=== PATIENT | female | born 1940 | race Caucasian/White ===

== ENCOUNTER 2016-11-18 08:27 | Outpatient (CLI) | payer MEDICARE ==
[~2016-11-18] VITALS: Ht 167.6 cm; Wt 118.2 kg
[~2016-11-18 08:27] MED LIST: ACETAMINOPHEN325 MG NG; AFRIN15 ML NS; ASPIRIN 81 MG E81 MG PO; BENADRYL50 MG PO; BIAXIN 500 MG500 MG PO; BUMEX 1 MG TAB1 MG PO; CALMOSEPTINE OI71 GM TOPICAL; CEFTIN500 MG PO; CELEBREX200 MG PO; COUMADIN7.5 MG PO; COZAAR100 MG PO; CYCLOPHOSPHAMID50 MG PO; DOXYCYCLINE HY100 M2 PO; ELAVIL25 MG PO; FLORANEX / LACT1 TAB PO; FLORASTOR250 MG PO; FLUTICASONE PRO16 GM NS; LASIX40 MG PO; LEVAQUIN500 MG PO; LEXAPRO10 MG; LOVENOX30 MG/0.3 SQ; LUNESTA2 M1 PO; MAALOX ADVANCE355 ML PO; MELATONIN 3 MG1 TAB PO; MERREM 1 GM/NS 11 G1 IV; MIRALAX17 GM PO; MUCINEX DM ER1 EAC1 PO; NIFEREX-150 CAP1 CA3 PO; NORCO 10/325 TA1 TA1 OR; NORVASC5 MG PO; PERFOROMIS20 MCG/21 NEB; PREDNISONE PO; PREDNISONE10 MG PO; PREDNISONE20 MG PO; PRILOSEC20 MG PO; PROTONIX40 MG PO; PROVENTIL/2.5 MG/3 M NEB; PULMICORT0.5 MG/21 INH; SINGULAIR10 MG PO; TESSALON PERLE100 MG PO; TUSSIONEX PENN473 ML PO; ULTRAM50 MG PO; VANCOMYCIN 1 GM/1 G1 IV; ZESTRIL10 MG PO; ZOFRAN4 MG PO
[2016-11-18 09:42] LABS: BASOPHILS 0.4 % (0-2); EOSINOPHILS 2.4 % (0-7); HEMATOCRIT 40.4 % (36.0-48.0); HEMOGLOBIN 13.2 g/dL (12-16); IMMATURE GRANULOCYTES 0.4 % (0-5); LYMPHOCYTES 17.3 % (15-50); MCH 31.8 pg (26.0-34.0); MCHC 32.7 g/dL (31.0-37.0); MCV 97.3 fL (80.0-100.0); MEAN PLATELET VOLUME 9.7 fL (7.4-10.4); NEUTROPHILS 71.5 % (40-80); RBC 4.15 10x6/uL (4.00-5.40); RDW 14.2 % (11.5-14.5); WBC 7.6 10x3/uL (4.8-10.8)
[2016-11-18 09:43] LABS: PLATELET COUNT 204 10x3/uL (130-400)
[2016-11-18 09:51] LABS: INR 0.96 (0.85-1.17); PROTIME 12.7 SECONDS (11.6-15.0)
[2016-11-18] MEDS ORDERED: VERELAN360 MG PO (09:51)
[2016-11-18] MEDS ORDERED: DITROPAN X10 MG/BOTT PO (09:51)
[2016-11-18 09:52] LABS: APTT 30.8 SECONDS (22.8-39.4)
[2016-11-18] MEDS ORDERED: REGLAN10 MG PO (09:52)
[2016-11-18] MEDS ORDERED: OMEPRAZOLE40 MG PO (09:52)
[2016-11-18] MEDS ORDERED: COZAAR100 MG PO (09:53)
[2016-11-18] MEDS ORDERED: VITAMIN B-122500 MCG PO (09:53)
[2016-11-18 09:54] LABS: ANION GAP 12.6 mmol/L (8-16); CALCIUM 9.7 mg/dL (8.5-10.1); CARBON DIOXIDE 29.5 mmol/L (21.0-32.0); CREATININE - SERUM 1.2 mg/dL (0.6-1.3); POTASSIUM - SERUM 4.1 mmol/L (3.5-5.1)
[2016-11-18] MEDS ORDERED: VITAMIN D31000 UNIT PO (09:54)
[2016-11-18] MEDS ORDERED: BAYER CHEWABLE81 MG PO (09:54)
[2016-11-18] MEDS ORDERED: CATAPRES0.1 MG PO (09:55)
[2016-11-18 10:04] VITALS: BP 192/103; Ht 167.6 cm; Wt 118.2 kg
--- NOTE | 2016-11-18 10:19 | NUR ---
SPOKE WITH JAYLYN AT RENAL OFFICE, WHO MESSAGED LEX ABOUT PT'S HIGH BP'S. BP MEDS BROUGHT FROM HOME AND GIVEN SINCE PT DID NOT TAKE HER MEDICATIONS THIS MORNING. GRIFFIN CALLED BACK WITH ORDERS. WILL MONITOR.
--- NOTE | 2016-11-18 11:13 | NUR ---
1045/1100- BP READINGS TAKEN MANUALLY DUE TO HIGH INFLATION WITH MACHINE, PT C/O PAIN TO BP ARM. 1110- DDAVP INFUSION STARTED WITH BP TRENDING DOWNWARD. WILL CONTINUE TO MONITOR VS FREQUENTLY.
--- NOTE | 2016-11-18 11:47 | NUR ---
1125- I.R. WILL REACCESS IF THEY WILL PROCEED WITH RENAL BIOPSY. I.R. AWARE DDAVP INFUSING. 1140- PT WAS COMPLAINING OF BACK AND CHEST PAIN. EKG PERFORMED=NSR. REPORTED THAT SHE HAD NO MORE CHEST PAIN AFTER A FEW SECONDS/MINUTES. ENCOURAGED TO REPOSITION FOR COMFORT. VS Q5 MINS CONTINUE WITH BP CONTINUING TO TREND DOWNWARD.
--- NOTE | 2016-11-18 14:26 | NUR ---
1345 PT RETURNED TO 2510 PROCEDURE CANCELLED DUE TO BP HIGH BLOOD PRESSURE. DR. BURNETT PAGED NOTIFIED, ORDERS RECEIVED TO GO HOME AND TO BE SEEN IN OFFICE AND RESCHEDULED LATER. LUNCH ORDERED. 1415 SPOUSE RETURNED UP TO BR VOIDS 1430 RELEASED HOME BY WC.
== END 2016-11-18 14:30 | disposition home or self-care (01) ==
LOC: D.OPS 08:27
PROVIDERS: General Practice
DX: R80.9 Proteinuria, unspecified (principal); Z53.09 Procedure and treatment not carried out because of other contraindication

== ENCOUNTER → 2018-01-07 16:30 | Outpatient (CLI) | payer MEDICARE ==
[2016-11-18 10:04] VITALS: BMI 42.0
[~2018-01-07 16:30] MED LIST changes: +BAYER CHEWABLE81 MG PO; +CATAPRES0.1 MG PO; +DITROPAN X10 MG/BOTT PO; +OMEPRAZOLE40 MG PO; +REGLAN10 MG PO; +VERELAN360 MG PO; +VITAMIN B-122500 MCG PO; +VITAMIN D31000 UNIT PO
== END | disposition home or self-care (01) ==
LOC: D.MAMMO 11:00
DX: Z12.31 Encounter for screening mammogram for malignant neoplasm of breast (principal)